=== PATIENT | male | born 1950 | race Caucasian/White ===

== ENCOUNTER → 2017-02-28 | Outpatient (CLI) | payer OTHER ==
--- NOTE | 2017-02-28 14:03 | DIAGNOSTIC IMAGING REPORT ---
Study: Fusion CT sinuses. HISTORY: Chronic sinusitis. Vertigo. FINDINGS: Minimal mucosal thickening of the maxillary and ethmoid sinuses. Mild hyperplastic changes of the nasal turbinates. 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 No evidence for major nasal occlusive process. No evidence for bony destructive process. The ostiomeatal units are patent bilaterally. No evidence for bony destructive process. IMPRESSION: 1. Minimal/mild mucosal thickening of the ethmoid and to a lesser extent maxillary sinuses. 2. Mild nasal septal displacement of the right with no evidence for a significant nasal occlusive process. 3. The ostiomeatal units are patent bilaterally Electronically signed by: Dakotah Oliveira M.D. 02/28/2017 2:01 PM Dictated Date/Time: 02/28/2017 1:56 PM
== END | disposition home or self-care (01) ==
LOC: C.CTS 12:40
DX: J32.9 Chronic sinusitis, unspecified (principal); R42 Dizziness and giddiness; R51 Headache